=== PATIENT | male | born 1985 | race Caucasian/White ===

== ENCOUNTER 2022-11-28 06:46 | Observation (INO) | payer SELFPAY ==
[2022-11-28 07:27] LABS: Absolute Lymphocytes (CBC) 2.9 K/uL (0.7-4.9); Hematocrit 46.4 % (39.6-49.0); Lymphocytes % 37.2 % (15.3-44.8); MCV 90.2 fL (80-100); MPV 8.9 fL (7.6-11.3); RBC Red Blood Cell Count 5.15 M/uL (4.33-5.43)
[2022-11-28] MEDS ORDERED: HYDROMORPHONE HCL 1 MG/ML INJ ONE (07:35)
[2022-11-28] MEDS ORDERED: ONDANSETRON 4 MG/2 ML VIAL ONE ×2 (07:35→12:06)
[2022-11-28] MEDS ORDERED: NA CHLORIDE 0.9% 1,000 ML ONE (07:35)
[2022-11-28 07:41] LABS: Albumin 3.7 g/dL (3.4-5.0); Bilirubin Direct 0.2 mg/dL (0-0.2); Bilirubin Indirect, Calculated 0.4 mg/dL (0.2-0.8); Bilirubin Total 0.6 mg/dL (0.2-1.0); Potassium 3.6 mEq/L (3.5-5.1); Troponin High Sensitivity 4.4 pg/mL (<58.9)
--- NOTE | 2022-11-28 07:54 | RAD REPORT ---
EXAM DESCRIPTION: Shailesh Single View11/28/2022 7:49 am CLINICAL HISTORY: Chest pain COMPARISON: none FINDINGS: The lungs appear clear of acute infiltrate. The heart probably upper limits normal size IMPRESSION: No acute abnormalities displayed
--- NOTE | 2022-11-28 08:27 | RAD REPORT ---
EXAM DESCRIPTION: CT - Abdomen Pelvis W Contrast - 11/28/2022 8:13 am CLINICAL HISTORY: Abdominal pain COMPARISON: none. TECHNIQUE: Computed axial tomography of the abdomen pelvis was obtained. 100 cc Isovue-300 was admin istered intravenously. Oral contrast was not requested which limits evaluation of bowel and appendix All CT scans are performed using dose optimization technique as appropriate and may include automated exposure control or mA/KV adjustment according to patient size. FINDINGS: Gallbladder wall thickening with mild stranding in the adjacent fat. Periportal hepatic edema. Spleen, pancreas, adrenals and kidneys unremarkable There is no evidence of diverticulitis. Appendectomy Mild anterior subluxation of L5 on S1. Spondylolysis L5. Small umbilical hernia IMPRESSION: Gallbladder wall thickening with mild stranding in adjacent fat the suspicious for zeb cystitis. Ultrasound recommended
[2022-11-28 08:42] LABS: Specific Gravity 1.025 (1.005-1.030); Urine Bacteria None Seen /HPF (<20); Urine Bilirubin NEGATIVE (Negative); Urine Blood Negative (Negative); Urine Clarity Clear (Clear); Urine Color Light-Yellow (Yellow); Urine Glucose NEGATIVE (Negative); Urine Mucus Slight /HPF (None Seen); Urine Protein NEGATIVE (Negative); Urine RBC <5 /HPF (None Seen); Urine Urobilinogen Normal (Normal); Urine pH 6.5 (5.0-7.0)
--- NOTE | 2022-11-28 08:56 | EDPHYS ---
Physician Documentation [facility] Name: Bassem Palomino Age: 37 yrs Sex: Male : 1985 Arrival Date: 11/28/2022 Time: 06:46 Bed 14 Private MD: ED Physician Vani Vazquez HPI: 11/28 07:28 This 37 yrs old Male presents to ER via Ambulatory with complaints of Epigastric pain. sp3 07:28 37-year-old male with no significant past medical history presents with a 1 day history sp3 of epigastric pain extending into the right upper quadrant. He denies vomiting or diarrhea, fever, upper chest pain, back pain, lower abdominal pain, syncope, near syncope, URI symptoms, shortness of breath, international travel, prolonged immobilization, known sick contacts, or any other signs or symptoms on ROS at this time. He is status post appendectomy. He denies any new foods, excessive alcohol, recreational drugs, or any other confounding factors. Pain is described as burning and sharp in nature epigastrically extending into the right upper quadrant.. Historical: - Allergies: 07:08 No Known Allergies; pf1 - PMHx: 07:08 Heart murmur; pf1 - PSHx: 07:08 Appendectomy; pf1 - Immunization history:: Adult Immunizations up to date, Client reports having NOT received the Covid vaccine. Last tetanus immunization: > 10 years ago Flu vaccine is not up to date. - Social history:: Smoking status: Patient denies any tobacco usage or history of. Patient uses alcohol, on a daily basis. claims drinking about a 6 pack/day. Patient/guardian denies using street drugs. ROS: 07:32 Constitutional: Negative for fever, chills, and weight loss, Eyes: Negative for injury, sp3 pain, redness, and discharge, ENT: Negative for injury, pain, and discharge, Neck: Negative for injury, pain, and swelling, Cardiovascular: Negative for chest pain, palpitations, and edema, Respiratory: Negative for shortness of breath, cough, wheezing, and pleuritic chest pain, Back: Negative for injury and pain, : Negative for injury, bleeding, discharge, and swelling, MS/Extremity: Negative for injury and deformity, Skin: Negative for injury, rash, and discoloration, Neuro: Negative for headache, weakness, numbness, tingling, and seizure, Psych: Negative for depression, anxiety, suicide ideation, homicidal ideation, and hallucinations, Allergy/Immunology: Negative for hives, rash, and allergies, Endocrine: Negative for neck swelling, polydipsia, polyuria, polyphagia, and marked weight changes. 07:32 All other systems are negative. Exam: 07:32 Constitutional: This is a well developed, well nourished patient who is awake, alert, sp3 and in no acute distress. Head/Face: Normocephalic, atraumatic. Eyes: Pupils equal round and reactive to light, extra-ocular motions intact. Lids and lashes normal. Conjunctiva and sclera are non-icteric and not injected. Cornea within normal limits. Periorbital areas with no swelling, redness, or edema. ENT: Nares patent. No nasal discharge, no septal abnormalities noted. External auditory canals are clear. Oropharynx with no redness, swelling, or masses, exudates, or evidence of obstruction, uvula midline. Mucous membranes moist. Neck: Trachea midline, no thyromegaly or masses palpated, and no cervical lymphadenopathy. Supple, full range of motion without nuchal rigidity, or vertebral point tenderness. No Meningismus. Chest/axilla: Normal chest wall appearance and motion. Nontender with no deformity. No lesions are appreciated. Cardiovascular: Regular rate and rhythm with a normal S1 and S2. No gallops, murmurs, or rubs. Normal PMI, no JVD. No pulse deficits. Respiratory: Lungs have equal breath sounds bilaterally, clear to auscultation and percussion. No rales, rhonchi or wheezes noted. No increased work of breathing, no retractions or nasal flaring. Back: No spinal tenderness. No costovertebral tenderness. Full range of motion. Skin: Warm, dry with normal turgor. Normal color with no rashes, no lesions, and no evidence of cellulitis. MS/ Extremity: Pulses equal, no cyanosis. Neurovascular intact. Full, normal range of motion. Neuro: Awake and alert, GCS 15, oriented to person, place, time, and situation. Cranial nerves II-XII grossly intact. Motor strength 5/5 in all extremities. Sensory grossly intact. Cerebellar exam normal. Normal gait. Psych: Awake, alert, with orientation to person, place and time. Behavior, mood, and affect are within normal limits. 07:32 Abdomen/GI: Patient has epigastric pain to palpation without peritoneal signs. There is no rebound or guarding.. 07:39 ECG was reviewed by the Attending Physician. EKG demonstrates normal sinus rhythm at 70 sp3 bpm with borderline HI interval of 200 ms and remainder of intervals being normal, normal QRS, normal axis, normal ST/T-segment's without evidence of acute ischemia. Vital Signs: 07:04 BP 134 / 87; Pulse 79; Resp 18; Temp 97.7; Pulse Ox 100% on R/A; Weight 95.25 kg; pf1 Height 6 ft. 1 in. ; Pain 10/10; 08:25 BP 118 / 78; Pulse 70; Resp 18 S; Pulse Ox 95% on R/A; kc6 09:37 BP 132 / 99; Pulse 74; Resp 20 S; Pulse Ox 97% on R/A; kc6 10:16 BP 119 / 83; Pulse 67; Resp 16 S; Pulse Ox 98% on R/A; kc6 11:07 BP 128 / 87; Pulse 63; Resp 16 S; Pulse Ox 100% on R/A; kc6 07:04 Body Mass Index 27.71 (95.25 kg, 185.42 cm) pf1 07:04 Pain Scale: Adult pf1 MDM: 07:04 Patient medically screened. sp3 07:32 Data reviewed: vital signs, nurses notes, lab test result(s), EKG, radiologic studies. sp3 ED course: 37-year-old male with epigastric pain x1 day. Differential diagnosis is broad and includes gastritis, pancreatitis, biliary pathology including biliary colic, cholecystitis, choledocholithiasis. Clinically have ruled out acute coronary syndrome, pulmonary embolism, aortic dissection, mesenteric ischemia, or any other critical pathology including sepsis or shock. Work-up will include laboratory values, CT scan of the abdomen and pelvis, urinalysis, and administration of Dilaudid and Zofran IV for symptomatic control. Disposition pending work-up and patient course.. 08:54 ED course: CT scan demonstrates gallbladder wall thickening and adjacent fat stranding. sp3 LFTs are normal as is WBC count. Ultrasound is pending. I spoken to Dr. Kumar who will admit him and try and add him to the schedule for today for cholecystectomy. Patient is n.p.o. Zosyn IV has been ordered as well. Pain is currently under control.. 11/28 07:11 Order name: Basic Metabolic Panel; Complete Time: 08:47 11/28 07:11 Order name: CBC with Diff; Complete Time: 08:47 11/28 07:11 Order name: LFT's; Complete Time: 08:47 3 11/28 07:11 Order name: Troponin HS; Complete Time: 08:47 11/28 07:11 Order name: Lipase; Complete Time: 08:47 11/28 07:34 Order name: UAM; Complete Time: 08:47 11/28 07:11 Order name: XRAY Chest (1 view); Complete Time: 08:47 11/28 07:24 Order name: CT Abd/Pelvis - IV Contrast Only; Complete Time: 08:47 11/28 08:48 Order name: US Abdomen Limited; Complete Time: 09:30 11/28 07:11 Order name: EKG; Complete Time: 07:12 11/28 07:11 Order name: Cardiac monitoring; Complete Time: 07:12 11/28 07:11 Order name: EKG - Nurse/Tech; Complete Time: 07:12 11/28 07:11 Order name: IV Saline Lock; Complete Time: 07:12 11/28 07:11 Order name: Labs collected and sent; Complete Time: 07:12 11/28 08:52 Order name: NPO; Complete Time: 08:53 sp3 Administered Medications: 07:32 Drug: HYDROmorphone IVP 1 mg Route: IVP; Site: right antecubital; kc6 08:26 Follow up: Response: No adverse reaction; Pain is decreased; RASS: Alert and Calm (0) kc6 07:32 Drug: Ondansetron IVP 4 mg Route: IVP; Site: right antecubital; kc6 08:26 Follow up: Response: No adverse reaction kc6 07:32 Drug: NS 0.9% IV 1000 ml Route: IV; Rate: 1 bolus; Site: right antecubital; kc6 10:16 Follow up: Response: No adverse reaction; IV Status: Completed infusion; IV Intake: kc6 1000ml 09:20 Drug: Piperacillin-Tazobactam IVPB 3.375 grams Route: IVPB; Infused Over: 60 mins; kc6 Site: right antecubital; 10:16 Follow up: Response: No adverse reaction; IV Status: Completed infusion; IV Intake: kc6 100ml 10:21 Drug: Nicotine Transdermal Patch 21 mg/24 hr 1 patches Route: Transdermal; Site: kc6 affected area; 11:07 Follow up: Response: No adverse reaction kc6 Disposition Summary: 11/28/22 08:56 Hospitalization Ordered Hospitalization Status: Observation sp3 Location: Telemetry/MedSurg (observation) sp3 Condition: Stable sp3 Problem: new sp3 Symptoms: have worsened sp3 Bed/Room Type: Standard sp3 Room Assignment: sp3 Provider: Vani Vazquez(11/28/22 11:39) kc6 Diagnosis - Biliary colic, cholecystitis, abdominal pain sp3 Forms: - Medication Reconciliation Form sp3 - SBAR form sp3 Signatures: Dispatcher [employer] EDMS Vani Vazquez MD MD sp3 Poonam Albarado RN RN kc6 Andie Hills RN RN pf1 Corrections: (The following items were deleted from the chart) 11:39 08:56 Jose Kumar sp3 kc6
--- NOTE | 2022-11-28 08:56 | ER ---
Nurse's Notes [facility] Name: Bassem Palomino Age: 37 yrs Sex: Male : 1985 Arrival Date: 11/28/2022 Time: 06:46 Bed 14 Private MD: Diagnosis: Biliary colic, cholecystitis, abdominal pain Presentation: 11/28 07:04 Chief complaint: Patient states: upper abdominal pain of 10 that radiates to back,onset pf1 0700 yesterday, worse this AM. Patient denies any N/V/D. Patient stated drinks approximately 6 pack a beer a day. Coronavirus screen: Vaccine status: Patient reports being unvaccinated. Client denies travel out of the [place] in the last 14 days. At this time, the client does not indicate any symptoms associated with coronavirus-19. Ebola Screen: Patient negative for fever greater than or equal to 101.5 degrees Fahrenheit, and additional compatible Ebola Virus Disease symptoms. Initial Sepsis Screen: Does the patient meet any 2 criteria? No. Patient's initial sepsis screen is negative. Does the patient have a suspected source of infection? No. Patient's initial sepsis screen is negative. Risk Assessment: Do you want to hurt yourself or someone else? Patient reports no desire to harm self or others. 07:04 Method Of Arrival: Ambulatory pf1 07:04 Acuity: JAMES 3 pf1 Historical: - Allergies: 07:08 No Known Allergies; pf1 - PMHx: 07:08 Heart murmur; pf1 - PSHx: 07:08 Appendectomy; pf1 - Immunization history:: Adult Immunizations up to date, Client reports having NOT received the Covid vaccine. Last tetanus immunization: > 10 years ago Flu vaccine is not up to date. - Social history:: Smoking status: Patient denies any tobacco usage or history of. Patient uses alcohol, on a daily basis. claims drinking about a 6 pack/day. Patient/guardian denies using street drugs. Screenin:09 [facility] ED Fall Risk Assessment (Adult) History of falling in the last 3 months, kc6 including since admission No falls in past 3 months (0 pts) Confusion or Disorientation No (0 pts) Intoxicated or Sedated No (0 pts) Impaired Gait No (0 pts) Mobility Assist Device Used No (0 pt) Altered Elimination No (0 pt) Score/Fall Risk Level 0 - 2 = Low Risk. Abuse screen: Denies threats or abuse. Denies injuries from another. Nutritional screening: No deficits noted. Tuberculosis screening: No symptoms or risk factors identified. Assessment: 07:13 General: Appears in no apparent distress. uncomfortable, Behavior is cooperative, kc6 appropriate for age, anxious, restless. Pain: Complains of pain in chest, epigastric area, right upper quadrant Pain does not radiate. Pain currently is 10 out of 10 on a pain scale. Quality of pain is described as sharp, Pain began 1 day ago. Is intermittent, Alleviated by repositioning, Aggravated by increased activity, Noted to be crying, guarding, moaning, resistant to movement, Also complains of no other associated symptoms. Neuro: Level of Consciousness is awake, alert, obeys commands, Oriented to person, place, time, situation, Appropriate for age. Cardiovascular: Reports chest pain, Denies shortness of breath, Heart tones S1 S2 present Capillary refill < 3 seconds Rhythm is sinus rhythm. Respiratory: Airway is patent Trachea midline Respiratory effort is even, unlabored, Respiratory pattern is regular, symmetrical. GI: Abdomen is flat, non-distended, Bowel sounds present X 4 quads. Abd is soft X 4 quads Abdomen is tender to palpation in epigastric area and right upper quadrant Reports upper abdominal pain, Patient currently denies diarrhea, nausea, vomiting. : No signs and/or symptoms were reported regarding the genitourinary system. EENT: No signs and/or symptoms were reported regarding the EENT system. Derm: No signs and/or symptoms reported regarding the dermatologic system. Skin is intact, is healthy with good turgor, Skin is pink, warm \T\ dry. Musculoskeletal: No signs and/or symptoms reported regarding the musculoskeletal system. Circulation, motion, and sensation intact. Capillary refill < 3 seconds, Range of motion: intact in all extremities. 08:25 Reassessment: Patient appears in no apparent distress at this time. No changes from kc6 previously documented assessment. Patient and/or family updated on plan of care and expected duration. Pain level reassessed. Patient is alert, oriented x 3, equal unlabored respirations, skin warm/dry/pink. Patient states feeling better. Patient states symptoms have improved. 09:37 Reassessment: Patient appears in no apparent distress at this time. No changes from kc6 previously documented assessment. Patient and/or family updated on plan of care and expected duration. Pain level reassessed. Patient is alert, oriented x 3, equal unlabored respirations, skin warm/dry/pink. 10:16 Reassessment: Patient appears in no apparent distress at this time. No changes from kc6 previously documented assessment. Patient and/or family updated on plan of care and expected duration. Pain level reassessed. Patient is alert, oriented x 3, equal unlabored respirations, skin warm/dry/pink. 11:07 Reassessment: Patient appears in no apparent distress at this time. No changes from kc6 previously documented assessment. Patient and/or family updated on plan of care and expected duration. Pain level reassessed. Patient is alert, oriented x 3, equal unlabored respirations, skin warm/dry/pink. Vital Signs: 07:04 BP 134 / 87; Pulse 79; Resp 18; Temp 97.7; Pulse Ox 100% on R/A; Weight 95.25 kg; pf1 Height 6 ft. 1 in. ; Pain 10/10; 08:25 BP 118 / 78; Pulse 70; Resp 18 S; Pulse Ox 95% on R/A; kc6 09:37 BP 132 / 99; Pulse 74; Resp 20 S; Pulse Ox 97% on R/A; kc6 10:16 BP 119 / 83; Pulse 67; Resp 16 S; Pulse Ox 98% on R/A; kc6 11:07 BP 128 / 87; Pulse 63; Resp 16 S; Pulse Ox 100% on R/A; kc6 07:04 Body Mass Index 27.71 (95.25 kg, 185.42 cm) pf1 07:04 Pain Scale: Adult pf1 ED Course: 06:47 Patient arrived in ED. jj6 07:03 Vani Vazquez MD is Attending Physician. sp3 07:04 Arm band placed on. kc6 07:08 Triage completed. pf1 07:08 Poonam Albarado, MAHSA is Primary Nurse. kc6 07:08 Inserted saline lock: 20 gauge in right antecubital area, using aseptic technique. oe 07:09 Patient maintains SpO2 saturation greater than 95% on room air. kc6 07:09 Patient has correct armband on for positive identification. Bed in low position. Call kc6 light in reach. Side rails up X2. Client placed on continuous cardiac and pulse oximetry monitoring. NIBP monitoring applied. nurse monitoring on. 07:50 XRAY Chest (1 view) In Process Unspecified. EDMS 08:15 CT Abd/Pelvis - IV Contrast Only In Process Unspecified. EDMS 09:13 US Abdomen Limited In Process Unspecified. EDMS 11:39 Vani Vazquez MD is Hospitalizing Provider. kc6 11:39 No provider procedures requiring assistance completed. Patient admitted, IV remains in kc6 place. Administered Medications: 07:32 Drug: HYDROmorphone IVP 1 mg Route: IVP; Site: right antecubital; kc6 08:26 Follow up: Response: No adverse reaction; Pain is decreased; RASS: Alert and Calm (0) [facility] 07:32 Drug: Ondansetron IVP 4 mg Route: IVP; Site: right antecubital; kc6 08:26 Follow up: Response: No adverse reaction [facility] 07:32 Drug: NS 0.9% IV 1000 ml Route: IV; Rate: 1 bolus; Site: right antecubital; kc6 10:16 Follow up: Response: No adverse reaction; IV Status: Completed infusion; IV Intake: kc6 1000ml 09:20 Drug: Piperacillin-Tazobactam IVPB 3.375 grams Route: IVPB; Infused Over: 60 mins; 6 Site: right antecubital; 10:16 Follow up: Response: No adverse reaction; IV Status: Completed infusion; IV Intake: kc6 100ml 10:21 Drug: Nicotine Transdermal Patch 21 mg/24 hr 1 patches Route: Transdermal; Site: [facility] affected area; 11:07 Follow up: Response: No adverse reaction [facility] Medication: 11:39 VIS not applicable for this client. kc6 Intake: 10:16 IV: 1000ml; Total: 1000ml. kc6 10:16 IV: 100ml; Total: 1100ml. kc6 Outcome: 08:56 Decision to Hospitalize by Provider. sp3 11:39 Admitted to OR accompanied by nurse, via stretcher, with chart, Report called to mikhail Mills RN 11:39 Condition: improved 11:39 Instructed on the need for admit. 11:39 Patient left the ED. 6 Signatures: Dispatcher [employer] EDMS Domenico Mg Setul, MD MD sp3 Echo Darling jj6 Poonam Albarado RN RN kc6 Andie Hills RN RN pf1 Corrections: (The following items were deleted from the chart) 07:41 07:13 Pain: Complains of pain in chest Pain does not radiate. kc6 kc6 07:41 07:13 GI: No signs and/or symptoms were reported involving the gastrointestinal system. kc6 kc6
[2022-11-28] MEDS ORDERED: NA CHLORIDE 0.9% 100 ML ONE (09:07)
[2022-11-28] MEDS ORDERED: PIPERACIL/TAZO 3.375 GM VIAL IV ONE (09:07)
--- NOTE | 2022-11-28 09:28 | RAD REPORT ---
EXAM DESCRIPTION: US - Abdomen Exam Limited - 11/28/2022 9:11 am CLINICAL HISTORY: Abdominal pain. COMPARISON: CT November 28, 2022 FINDINGS: Mild gallbladder wall thickening. Several small echogenic structures within the gallbladde r. The biliary tree is normal caliber. IMPRESSION: Several small echogenic structures the gallbladder may represent stones which did not sh adow secondary to a combination of its small size and technical factors or sludge. Mild gallbladder wall thickening suspicious for cholecystitis
[2022-11-28] MEDS ORDERED: NICOTINE 21 MG/PAT TD ONE (10:30)
[2022-11-28] MEDS ORDERED: Ringers Lactate 1,000 ML IV ONE (11:54)
[2022-11-28] MEDS ORDERED: NA CIT/CITRIC AC 30 ML ORAL UDC ONE (12:00)
[2022-11-28] MEDS ORDERED: D5 0.45 NS 1,000 ML IV SCH (12:01)
[2022-11-28] MEDS ORDERED: ONDANSETRON 4 MG/2 ML VIAL IV PRN (12:01)
[2022-11-28] MEDS ORDERED: HYDROMORPHONE HCL 1 MG/ML INJ IV PRN (12:01)
[2022-11-28] MEDS ORDERED: ROCURONIUM 50 MG/5 ML VIAL IV ONE (12:06)
[2022-11-28] MEDS ORDERED: FENTANYL CITR 100 MCG/2 ML ONE (12:06)
[2022-11-28] MEDS ORDERED: propofoL 200 MG/20 ML VIAL IV ONE (12:06)
[2022-11-28] MEDS ORDERED: dexAMETHasone 10 MG/ML VIAL ONE (12:06)
[2022-11-28] MEDS ORDERED: LIDOCAINE 2% MPF 5 ML VIAL ONE (12:06)
[2022-11-28] MEDS ORDERED: MIDAZOLAM HCL 2 MG/2 ML INJ ONE (12:06)
[2022-11-28] MEDS ORDERED: KETOROLAC 30 MG/ML INJ ONE (12:07)
[2022-11-28] MEDS ORDERED: SUCCINYLCHOLINE 20 MG/ML (10 ML) IV ONE (12:13)
--- NOTE | 2022-11-28 12:43 | P.BOP ---
Preoperative diagnosis: Acute cholecystitis, symptomatic cholelithiasis Postoperative diagnosis: same, umbilical hernia Primary procedure: Laparoscopic cholecystectomy, umbilical hernia repair [employer] Machine Operator: Melody Jerome (Susan) Estimated blood loss: <10cc Specimen: gb Findings: as above Anesthesia: General Complications: None Transferred to: Recovery Room Condition: Good
[2022-11-28] MEDS ORDERED: NEOSTIGMINE 1 MG/ML -10 ML VIAL ONE (12:47)
[2022-11-28] MEDS ORDERED: GLYCOPYRROLATE 0.2 MG/ML SYR ONE (12:47)
[2022-11-28] MEDS: HYDROMORPHONE HCL 1 MG/ML INJ ONE ×2 (13:06→13:11)
[2022-11-28 13:19] VITALS: O2SAT 98
[2022-11-28 13:53] VITALS: TEMP 97
[2022-11-28] MEDS ORDERED: HYDROCODONE/APAP 5/325 MG TAB ONE (14:08)
[2022-11-28 14:34] VITALS: BP 137/89
--- NOTE | 2022-11-28 17:09 | HP ---
Date of Admission: 11/28/2022 Diagnoses: Acute cholecystitis, symptomatic cholelithiasis, intractable right upper quadrant abdomin al pain. This is a chief complaint. History Of Present Illness: This is the case of a 37-year-old patient with abdominal pain since yest erday. He was eating some fried meat and fried potatoes, developed this pain, this morning woke up o nce again with a plan trying to eat something to see that it will alleviate, but it did not get jahaira r, so he shows to the ER. Pain is intractable. They called me since the patient has an ultrasound a nd CAT scan findings of acute cholecystitis and symptomatic cholelithiasis. He denies any trauma, an y dysuria, hematuria, hematochezia, melena. Denies any recent traveling out of the country. Denies any family member sick at home. His symptoms include nausea and vomiting. Past Medical History: Includes heart murmur. Allergies: NONE. Past Surgical History: Includes appendectomy. Social History: He does not smoke. He does not drink alcohol. Family History: Noncontributory. Review of Systems: Nausea, vomiting, abdominal pain. Ten points otherwise unremarkable. No palpitations. No chest jackie n. Physical Examination: General: The patient is awake, alert. HEENT: Pupils are equal and reactive. Anicteric. Neck: Supple. Chest: Clear. Heart: S1, S2. Abdomen: Epigastric right upper quadrant tenderness with Ortega sign positive. The rest of the abdo men is soft and depressible. Pelvis: Stable. Rectal: Deferred. Genitalia: Deferred. Extremities: Good capillary refill. Neurologic: Cranial nerves 2 through 12 grossly within normal limits. Laboratory Data: Blood work shows WBC count of 7.8, hemoglobin of 16.2, potassium 3.6, bicarb 28, cr eatinine is around 1.22. CAT scan of the abdomen and pelvis interpreted by Dr. Reyes and also an u ltrasound of the abdomen interpreted by Dr. Reyes shows gallbladder wall thickening with mild stran ding adjacent to the fat and also some filling defects consistent with a cholelithiasis. There is al so some evidence of diverticulum, also evidence of mild anterior subluxation of L5-S1. The patient a lso has a small umbilical hernia. The patient also has periportal hepatic edema. An ultrasound show s several small echogenic structures. Total bilirubin of 0.6, AST 27, ALT 55, alkaline phosphatase 6 2, lipase 39. Assessment: This is a 37-year-old patient with acute cholecystitis, symptomatic cholelithiasis. The patient fully explained options. One of the options include surgical intervention includes a laparo scopic possible open cholecystectomy with benefits, alternatives, and risks including, but not limite d to infection, bleeding, damage to adjacent structures, anesthesia complication, choledocholithiasis , bile leak, pancreatitis, OR, and even . He also understands this may not any relieve symptoms . He might need more than one surgical intervention. He understood, signed a consent. He was expla ined if he gets discharged the importance of no heavy lifting, no more than 20 pounds. Also advised the importance of low-fat diet. EARLENE/BRII Voice ID: [id number]
--- NOTE | 2022-11-29 13:23 | EKG ---
Test Date: 2022-11-28 Test Time: 07:04:41 Payroll Professional: CHITRA MEASUREMENT RESULTS: Intervals: Rate: 78 ID: [id number] QRSD: 110 QT: 380 QTc: 433 [place]: P: 57 ID: [id number] QRS: 54 T: 35 INTERPRETIVE STATEMENTS: Normal sinus rhythm Normal ECG No previous ECG available for comparison Electronically Signed On 11-29-22 13:20:18 CDT by Terence Jordan
--- NOTE | 2022-12-03 13:32 | OP ---
Date of Procedure: 11/28/2022 Surgeon: Jose Kumar MD Frame Changer: Melody Coronado. Preoperative Diagnoses: Acute cholecystitis, symptomatic cholelithiasis. Postoperative Diagnoses: Acute cholecystitis, symptomatic cholelithiasis plus umbilical hernia. Procedures: 1.Laparoscopic cholecystectomy. 2.Open repair of umbilical hernia. Estimated Blood Loss: Less than 10 mL. Specimen: Gallbladder. Anesthesia: General plus local. Indication: This is the case of a male, who comes to us with above diagnoses. Fully explained the b enefits, alternatives, and risks of laparoscopic possible open cholecystectomy, which include, but no t limited to infection, bleeding, damage to adjacent structures, anesthesia complication, recurrence, DC, and even . He also understands this may not relieve any symptoms. He might need more than one surgical intervention. He understood, signed a consent. Procedure In Detail: The patient was brought to the operating room, placed in supine position. Anes thesia was induced without complication. Abdominal area was prepped and draped in the usual sterile fashion. Marcaine 0.5% was injected for local anesthetic followed by sharp incision of the skin in t he infraumbilical region. Immediately, we noticed the patient to have umbilical hernia, so carefully the umbilical sac was removed away from umbilical skin. The umbilical sac was removed. The fascial edges were open. Then, we extended those fascial edges to accommodate the Danny trocar. Vicryl #1 placed inside the fascia. Danny trocar was carefully introduced. Pneumoperitoneum was obtained. I placed 3 more trocars, 5 mm each one of them, 1 in epigastric area and 2 in the right upper quadran t using same technique, which was consisted of local anesthetic, sharp incision of the skin and intro duction of the trocars under direct vision. This allowed me to put a grasper in the fundus of the ga llbladder, another grasper in the infundibulum retracting the gallbladder in the inferolateral fashio n exposing the triangle of Calot, and obtaining critical view. Cystic duct and cystic artery were cl early isolated, freed circumferentially and a connection between those and the gallbladder were clear ly identified. I proceeded to ligate those by using at least 3 clips proximal, 1 clip distal, ligati on in middle. Same was done with the cystic artery. No bile leak, no bleeding. The gallbladder was removed from the liver using Bovie cauterizer and removed from the abdominal cavity using an EndoCat ch through the umbilical incision. The area was inspected once again. No bile leak, no bleeding. A t that moment, I proceeded to remove the trocars under direct vision, deflated pneumoperitoneum, clos ed the fascia with #1 Vicryl, irrigated the subcutaneous tissue, and closed the umbilical hernia with #1 Vicryl. After we irrigated subcutaneous tissue, we approximated the skin. Sponge count, instrum ent counts correct. The patient tolerated the procedure well. The patient was sent to recovery in s table condition. EARLENE/BRII Voice ID: [id number] Report ID: [id number]
== END 2022-11-28 14:25 | disposition home or self-care (01) ==
LOC: ER 06:46 → ERHOLD 11:44 → 2ND 12:15
PROVIDERS: ADMIT Surgery; ATTEND Surgery
PROC: 0FT44ZZ Resection of Gallbladder, Percutaneous Endoscopic Approach (ICD-10-PCS; principal; 2022-11-28 11:30)
DX: K80.20 Calculus of gallbladder without cholecystitis without obstruction (principal); R10.11 Right upper quadrant pain; K42.9 Umbilical hernia without obstruction or gangrene
CPT/HCPCS: 36415; 71045; 74177; 76705; 80048; 80076; 81001; 83690; 84484; 85025; 88304; 93005; 96361; 96365; 96375; 99285; J1100; J1170; J2001; J2250; J2405; J2543; J2704; J2710; J3010; J7030; J7120; Q9967